=== PATIENT | female | born 1975 | race Caucasian/White ===

== ENCOUNTER 2021-09-09 21:21 | Emergency (ER) | payer OTHER ==
[~2021-09-09] VITALS: Ht 170.2 cm; Wt 63.5 kg
[2021-09-09 21:41] VITALS: BP 133/77
--- NOTE | 2021-09-09 21:41 | NUR ---
BIBSELF C/O DOG BITE TO R HAND X 1 HR. TDAP NOT UTD. PT A/OX4. TOLERATING R/A WELL WITH NO SOB. PT AMBULATORY WITH STEADY GAIT.
[2021-09-09] MEDS ORDERED: TDAP [DIPH/PERTUSSIS/TET] 0.5 ML VIAL IM ONE ×2 (21:55→22:00)
[2021-09-09] MEDS ORDERED: AMOX-430 PO (21:57)
--- NOTE | 2021-09-09 22:05 | NUR ---
Wound care done to patients left hand. No active bleeding noted.
--- NOTE | 2021-09-09 22:08 | NUR ---
Patient discharged to home in stable condition. Written and verbal after care instructions given. Patient verbalizes understanding of instruction. pt ambulatory with a steady gait.
== END 2021-09-09 22:08 | disposition home or self-care (01) ==
LOC: ER 21:32
DX: S61.452A Open bite of left hand, initial encounter (principal); Z60.2 Problems related to living alone; Z79.899 Other long term (current) drug therapy; W54.0XXA Bitten by dog, initial encounter; Y93.89 Activity, other specified; Y92.89 Other specified places as the place of occurrence of the external cause; Y99.8 Other external cause status
CPT/HCPCS: 90715